=== PATIENT | male | born 1945 | race Caucasian/White ===

== ENCOUNTER → 2017-08-22 | Outpatient (CLI) | payer OTHER ==
[~2017-08-22] MED LIST: ACETAMINOPHEN325 M1 PO; CYCLOBENZAPRINE10 MG PO; DESYREL150 MG PO; DILTIAZEM 24HR120 M1 PO; DILTIAZEM 24HR240 MG PO; DILTIAZEM ER120 M1 PO; FLEXERIL PO; FLOMAX0.4 MG PO; GLUCOPHAGE500 MG PO; HYDROCODONE-AP1 EAC6 PO; LYRICA 50 MG50 MG PO; LYRICA 75 MG CA75 MG PO; MULTIVITAMINS PO; NAPROSYN500 MG PO; NORCO 5-325 TA1 EACH PO; PAMELOR25 MG PO; PERCOCET 10-321 EACH PO; PERCOCET 7.5-31 EACH PO; PREDNISONE 10 M10 MG PO; PRINIVIL20 MG PO; PRINZIDE 20-121 EACH PO; RELAFEN500 MG PO; TRAZODONE PO; VALIUM5 MG PO; XANAX 0.25 MG0.25 MG PO; ZINC CHELATE50 MG PO
== END ==
LOC: RAD 12:30
DX: J44.9 Chronic obstructive pulmonary disease, unspecified (principal)

== ENCOUNTER 2018-02-18 13:30 | Emergency (ER) | payer OTHER ==
[~2018-02-18] VITALS: Ht 177.8 cm; Wt 80.7 kg
[2018-02-18] MEDS ORDERED: BUSPIRONE HCL10 MG PO (13:45)
[2018-02-18] MEDS ORDERED: KEFLEX500 M1 PO (15:25)
[2018-02-18 15:36] VITALS: BP 168/79
== END 2018-02-18 15:50 | disposition home or self-care (01) ==
LOC: ER 13:30
DX: S81.812A Laceration without foreign body, left lower leg, initial encounter (principal); S80.812A Abrasion, left lower leg, initial encounter; S80.811A Abrasion, right lower leg, initial encounter; I10 Essential (primary) hypertension; E11.9 Type 2 diabetes mellitus without complications; F17.200 Nicotine dependence, unspecified, uncomplicated; Z88.8 Allergy status to other drugs, medicaments and biological substances; W17.1XXA Fall into storm drain or manhole, initial encounter; Y93.89 Activity, other specified; Y92.89 Other specified places as the place of occurrence of the external cause; Y99.8 Other external cause status

== ENCOUNTER → 2018-10-10 | Outpatient (CLI) | payer OTHER ==
[~2018-10-10] VITALS: Ht 177.8 cm; Wt 78.9 kg
[~2018-10-10] MED LIST changes: +ASPIRIN325 PO; +AVODART0.5 MG PO; +BUSPIRONE HCL10 MG PO; +CIALIS20 MG PO; +CYMBALTA30 MG PO; +GLUCOTROL5 MG PO; +KEFLEX500 M1 PO; +LASIX 20 MG TAB20 MG PO; +LIPITOR40 MG PO; +PLAVIX 75 MG TA75 M1 PO; +TRAZODONE 150150 M1 PO; +WELLBUTRIN SR150 MG PO
[2018-10-10 12:28] VITALS: BP 148/67
[2018-10-10 13:08] LABS: HEMATOCRIT 42.3 % (42.0-52.0); HEMOGLOBIN 14.2 gm/dL (14.0-18.0); MCHC 33.7 g/dL (28.0-37.0); RBC 4.6 mil/uL (4.50-6.00); RDW 13.6 % (10.5-14.5); WBC 9.2 thou/uL (4.0-11.0)
[2018-10-10 13:15] LABS: CALCIUM 9.9 mg/dL (8.5-10.1); CREATININE 1.3 mg/dL (0.7-1.3); POTASSIUM 4.1 mmol/L (3.5-5.1)
== END | disposition home or self-care (01) ==
LOC: RAD 10-09 11:21 → SPEC 11:53 → RAD 11:53
PROVIDERS: Nuclear Medicine Nuclear Cardiology
DX: I70.238 Atherosclerosis of native arteries of right leg with ulceration of other part of lower leg (principal); I70.1 Atherosclerosis of renal artery; I10 Essential (primary) hypertension; I25.10 Atherosclerotic heart disease of native coronary artery without angina pectoris; M25.571 Pain in right ankle and joints of right foot; E11.9 Type 2 diabetes mellitus without complications; F17.210 Nicotine dependence, cigarettes, uncomplicated; Z88.8 Allergy status to other drugs, medicaments and biological substances; Z98.890 Other specified postprocedural states; Z79.899 Other long term (current) drug therapy

== ENCOUNTER → 2018-10-14 | Outpatient (CLI) | payer OTHER ==
[~2018-10-14] VITALS: Ht 177.8 cm; Wt 78.9 kg
[2018-10-14 09:37] VITALS: BP 160/68
== END | disposition home or self-care (01) ==
LOC: SPEC 08:52
DX: I70.212 Atherosclerosis of native arteries of extremities with intermittent claudication, left leg (principal); I10 Essential (primary) hypertension; E11.9 Type 2 diabetes mellitus without complications; F17.210 Nicotine dependence, cigarettes, uncomplicated; Z98.890 Other specified postprocedural states; Z79.899 Other long term (current) drug therapy; Z88.8 Allergy status to other drugs, medicaments and biological substances

== ENCOUNTER → 2018-10-18 | Outpatient (CLI) | payer OTHER | LOC: CAT 15:06 | DX: Z13.6 Encounter for screening for cardiovascular disorders (principal); I25.10 Atherosclerotic heart disease of native coronary artery without angina pectoris; E78.00 Pure hypercholesterolemia, unspecified ==

== ENCOUNTER → 2019-03-06 | Outpatient (CLI) | payer OTHER ==
[~2019-03-06] MED LIST changes: +FLAGYL500 M1 PO; +LEVAQUIN 500 M500 M8 PO
== END ==
LOC: SJCVC 14:00
DX: I25.10 Atherosclerotic heart disease of native coronary artery without angina pectoris (principal); I12.9 Hypertensive chronic kidney disease with stage 1 through stage 4 chronic kidney disease, or unspecified chronic kidney disease; E11.22 Type 2 diabetes mellitus with diabetic chronic kidney disease; N18.3 Chronic kidney disease, stage 3 (moderate); I73.9 Peripheral vascular disease, unspecified; I65.23 Occlusion and stenosis of bilateral carotid arteries; E78.5 Hyperlipidemia, unspecified; F17.210 Nicotine dependence, cigarettes, uncomplicated; Z79.82 Long term (current) use of aspirin; Z88.8 Allergy status to other drugs, medicaments and biological substances

== ENCOUNTER → 2019-04-04 | Outpatient (CLI) | payer OTHER ==
[~2019-04-04] MED LIST changes: -FLAGYL500 M1 PO; -LEVAQUIN 500 M500 M8 PO
== END ==
LOC: MRI 07:02
DX: M48.062 Spinal stenosis, lumbar region with neurogenic claudication (principal); M51.36 Other intervertebral disc degeneration, lumbar region

== ENCOUNTER 2019-04-09 19:48 | Inpatient (IN) | payer OTHER ==
[~2019-04-09] VITALS: Ht 175.3 cm; Wt 75.7 kg
[2019-04-09 19:51] VITALS: BP 139/75
[2019-04-09 20:45] LABS: URINE BILIRUBIN NEGATIVE (Negative); URINE BLOOD NEGATIVE (Negative); URINE CLARITY CLEAR; URINE COLOR YELLOW; URINE GLUCOSE-RANDOM* 1+ (Negative); URINE KETONES NEGATIVE (Negative); URINE NITRITE-REFLEX NEGATIVE (Negative); URINE PROTEIN (DIPSTICK) NEGATIVE (Negative); URINE UROBILINOGEN 0.2 E.U./dl (0.2-1.0)
[2019-04-09 20:52] LABS: URINE LEUKOCYTES-REFLEX 1+ (Negative)
[2019-04-09 21:00] LABS: CASTS None Seen /LPF (None Seen); CRYSTALS None Seen /LPF (None Seen); SQUAMOUS None Seen /LPF (0-3); URINE WBC-REFLEX 6-15 Few /HPF (0-5)
[2019-04-09 21:01] LABS: BACTERIA-REFLEX 1-9 Few /HPF (None Seen); URINE RBC None Seen /HPF (0-2)
[2019-04-09 21:08] LABS: ABSOLUTE NEUTROPHILS 9.2 thou/uL (1.4-8.2); BASOPHILS 0.7 % (0.0-2.0); EOSINOPHILS 0.2 % (0.0-3.0); HEMATOCRIT 46.1 % (42.0-52.0); LYMPHOCYTES 11.6 % (24.0-44.0); MCH 30.9 pg (26.0-34.0); MCHC 32.6 g/dL (28.0-37.0); MCV 94.8 fL (80.0-100.0); MONOCYTES 8.9 % (1.0-8.0); PLATELET COUNT 187 thou/uL (150-400); POLYS 78.6 % (36.0-66.0); RBC 4.86 mil/uL (4.50-6.00); RDW 14.9 % (10.5-14.5); WBC 11.7 thou/uL (4.0-11.0)
[2019-04-09 21:22] LABS: CALCIUM 9.7 mg/dL (8.5-10.1); CREATININE 1.6 mg/dL (0.7-1.3)
[2019-04-09 21:26] LABS: ALBUMIN 4.1 g/dL (3.4-5.0); TOTAL BILIRUBIN 0.3 mg/dL (<0.1-1.0); TOTAL PROTEIN 7.9 g/dL (6.4-8.2)
[2019-04-09 21:50] LABS: POTASSIUM 3.5 mmol/L (3.5-5.1)
[2019-04-10 00:16] VITALS: BP 202/95
--- NOTE | 2019-04-10 01:02 | NUR ---
NG TUBE TO RIGHT NARE PLACED. PATIENT TOLERATED WELL. 1200ML OF CLEAR GASTRIC FLUID IMMEDIATE RETURN
[2019-04-10 01:41] VITALS: BP 186/92
--- NOTE | 2019-04-10 04:31 | NUR ---
Pt admitted from ED at 0125 via cart accompanied by staff and dtr. A/OX4, oriented to the room and call light system. Pt c/o cramping pain on arrival and nausea but settled down after some time. NG tube patent connected to LIS draining moderate brown drainage. Medicated for pain with partial relief reported. Pt's BP elevated on arrival medicated per EMAR with partial relief 170/80,86. Pt reported to nurse he fell at home about a week ago d/t numbness in his LE,educated on fall safety protocol and verbalized understanding,fall precautions implemented. Resting quietly at this time w/o distress will continue to monitor pt.
[2019-04-10 04:41] VITALS: BP 170/80
[2019-04-10 06:08] LABS: HEMATOCRIT 43.7 % (42.0-52.0); HEMOGLOBIN 14.1 gm/dL (14.0-18.0); MCH 30.7 pg (26.0-34.0); MCHC 32.3 g/dL (28.0-37.0); MCV 95.1 fL (80.0-100.0); RBC 4.59 mil/uL (4.50-6.00); RDW 14.7 % (10.5-14.5); WBC 13.4 thou/uL (4.0-11.0)
[2019-04-10 06:34] LABS: CALCIUM 9.3 mg/dL (8.5-10.1); CREATININE 1.3 mg/dL (0.7-1.3); POTASSIUM 3.8 mmol/L (3.5-5.1)
[2019-04-10 07:26] VITALS: BP 171/76
[2019-04-10 08:29] LABS: BE(vivo) 3.9 mmol/L (-2 to +3); HCO3 27.5 mmol/L (22.0-26.0); PCO2 38.2 mmHg (35.0-45.0); PO2 69.3 mmHg (80.0-100.0); pH 7.475 (7.360-7.450)
--- NOTE | 2019-04-10 09:18 | NUR ---
Pt admit with acute diverticulitis. Hx HTN, NIDD. Experienced N/V in ED but reports none prior to admit. NG tube placed for decompression of abdominal distention. Day 1 on NPO. UBW is 175#, currently 95.4% of UBW. Wt loss of 4.6% occurred over the past 6 months. Pt states he has a good appetite but doesn't eat much when he visits his girlfriend in [place] almost every weekend because she doesn't cook. They typically eat at restaurants or fast food. States his diet used to be high in fiber with fruits and vegetables, however diet quality has been poor for past 4-5 months. Seemed overwhelmed with Dx but was very interested in diet education. States he had no formal diet education when he was Dx with DM about 20 yrs ago but thought he was able to control BG through diet at home. BG on admit was 222. IV Abx, IVF, lispro, ciproflaxin. No wasting noted. Consider to be low nutritional risk.
--- NOTE | 2019-04-10 19:22 | NUR ---
ASSUMED PT CARE AT 0700. PT AOX4, VSS, REPORTS PAIN IS GENERALIZED IN THE ABDOMINAL AREA. PT RECEIVED MORPHINE IV. PT HAS NAUSEA ON/OFF, GAVE IV ZOFRAN. PT HAS INCREASED ANXIETY NOW THAT HE TALKED TO THE DOCTOR. PT REPORTS HE MOM FROM A BOWEL OBSTRUCTION AT 70. PT REPORTS HE DOESN'T WANT TO IN THE SAME WAY AT AGE 73. PT HAS NG TUBE OUTPUT 1200. IV IN R AC WITH FLUIDS RUNNING/ANTIBIOTIC ORDERED. PT IS UP TO BR WITH SB ASSIST. PT HAD 1 SMALL BM TODAY. CALL LIGHT IN REACH, WILL CONTINUE TO MONITOR.
[2019-04-10 22:26] VITALS: BP 181/70
--- NOTE | 2019-04-10 22:36 | NUR ---
Timothy pt care at 1900. Pt A/OX4,C/o unrelieved pain/discomfort and feeling miserable. Had a 1:1 conversation with pt regarding s visits and findings and pt did verbalize feeling anxious about everything. Laney FLAGMAN notified on pt status;gave orders for Morphine 2MGX1 and Ativan 1MGX1. Medications administered and on reassessment pt stated he's finally pain free and can get some rest. No c/o N/V. BP elevated medicated with Hydralazine per EMAR,will monitor effectiveness. IVF infusing via RAC w/o problems. NG tube in place and patent draining brownish drainage.(Right nare). Fall precautions in place and pt verbalizes understanding to call for help before getting OOB.
[2019-04-11 08:00] VITALS: BP 151/89
[2019-04-11 08:39] LABS: HEMATOCRIT 43.3 % (42.0-52.0); HEMOGLOBIN 14.1 gm/dL (14.0-18.0); MCH 31.1 pg (26.0-34.0); MCHC 32.6 g/dL (28.0-37.0); MCV 95.4 fL (80.0-100.0); RBC 4.54 mil/uL (4.50-6.00); RDW 14.5 % (10.5-14.5); WBC 8.1 thou/uL (4.0-11.0)
[2019-04-11 08:49] LABS: CALCIUM 8.9 mg/dL (8.5-10.1); CREATININE 1.3 mg/dL (0.7-1.3); MAGNESIUM 2.2 mg/dL (1.8-2.4); POTASSIUM 3.2 mmol/L (3.5-5.1)
--- NOTE | 2019-04-11 09:56 | NUR ---
INITIAL ASSESSMENT: SW reviewed chart and spoke with nursing and attending physician. Pt was admitted from home due to diverticulitis/ileus. Pt has NG tube in place. Surgery is following. SW attempted to meet with pt at bedside. Pt is sleeping soundly during time of visit. Per chart, pt is alert/orientated x 4. Pt lives at home. Prior to admission, pt was independent with ADLs. SW to follow up with pt at later time and is following to assist as needed with discharge planning.
--- NOTE | 2019-04-11 17:49 | NUR ---
ASSUMED CARE OF PATIENT AT 0715, PATIENT ALERT AND ORIENTED X 4. UP WITH SBA. FALL PRECAUTIONS IN PLACE, DUE TO RECENT FALL. PATIENT DENIES PAIN THIS SHIFT. PATIENT HAS NG TUBE TO SUCTION, WITH DARK BROWNWISH DRAINAGE NOTED. NG TUBE CLAMPED AT 0820, RECHECKED RESIDUAL IN 4 HOURS, 100CC NOTED. OK TO START CLEAR LIQ. DIET PER DR JACKSON. C/O SORE THROAT, NOTIFIED DR STEINBERG OF SORE THROAT, CHLORASEPTIC SPRAY ORDERED. C/O NG BEING DISCONTINUED, THIS RN NOTIFIED DR JACKSON, JENNY TO REMOVE NG TUBE. NO C/O NAUSEA WITH CLEAR LIQUIDS. RIGHT AC IV WITH NS AT 75CC/HR. PER HR. PATIENT C/O ANXIETY, THIS RN NOTIFIED DR STEINBERG. WILL CONTINUE TO MONITOR.
[2019-04-11 19:45] VITALS: BP 179/81
[2019-04-11 22:33] VITALS: BP 123/51
--- NOTE | 2019-04-12 03:54 | NUR ---
PATIENT ALERT AND ORIENTED X4. COOPERATIVE AND PLEASANT. UP WITH SBA TO BATHROOM. MEDICATED FOR PAIN X1 AT TIME OF NOTE. BP 179/81 AND PRN HYDRALAZINE WAS GIVEN - DOWN TO 123/51. BS MONITORED PER ORDER. IVF INFUSING W/O COMPLICAITON. SLEPT WELL DURING ROUNDS, HOWEVER, PATIENT FELT THAT HE HAS NOT SLEPT WELL. WILL MONITOR.
[2019-04-12 06:45] LABS: HEMATOCRIT 38.9 % (42.0-52.0); HEMOGLOBIN 12.7 gm/dL (14.0-18.0); MCH 30.9 pg (26.0-34.0); MCHC 32.5 g/dL (28.0-37.0); MCV 95.2 fL (80.0-100.0); RBC 4.09 mil/uL (4.50-6.00); RDW 14.7 % (10.5-14.5); WBC 6.8 thou/uL (4.0-11.0)
[2019-04-12 06:59] LABS: CALCIUM 8.3 mg/dL (8.5-10.1); CREATININE 1.2 mg/dL (0.7-1.3); MAGNESIUM 1.9 mg/dL (1.8-2.4); POTASSIUM 3.5 mmol/L (3.5-5.1)
[2019-04-12 07:50] VITALS: BP 172/71
[2019-04-12] MEDS ORDERED: LEVAQUIN 500 M500 M8 PO (12:49)
[2019-04-12] MEDS ORDERED: FLAGYL500 M1 PO (12:49)
[2019-04-12 13:20] VITALS: BP 172/71
--- NOTE | 2019-04-12 13:35 | NUR ---
ASSUMED CARE OF PATIENT AT 0715, PATIENT ALERT AND ORIENTED X 4. UP WITH SBA TO BATHROOM. PATIENT C/O PAIN WITH BACK AREA, RECEIVD MORPHINE 4MG IV X 1 THIS SHIFT. PATIENT CONTINUES WITH RIGHT AC IV, WITH NS AT 75CC/HR. DR FAIR HERE THIS AM, UPGRADED DIET TO REGULAR FOR BREAKFAST AND LUNCH, TOLERATED WELL, NO NAUSEA OR PAIN REPORTED. DR STEINBERG HERE THIS AM TO SEE THE PATIENT, WILL DISCHARGE AFTER LUNCH, IF NO PROBLEMS. RECEIVED ORDER TO DISCHARGE TO HOME WITH SELF CARE. RIGHT AC IV REMOVED PRIOR TO DISCHARGE. ALL DISCHARGE PAPERWORK AND ALL PERSONAL BELONGINGS SENT WITH THE PATIENT. NEW SCRIPTS SENT TO THE PHARMACY, INFO FOR DISCHARGE MEDS SENT WITH THE PATIENT.
== END 2019-04-12 13:55 | disposition home or self-care (01) | DRG 389 ==
LOC: ER 19:48 → EROBS 23:28 → 4N 23:28 → EROBS 23:28 → 4N 04-10 00:37
PROVIDERS: Internal Medicine; Internal Medicine Gastroenterology; Nurse Practitioner Family; Physician Assistant; ADMIT Internal Medicine
PROC: 0D9670Z Drainage of Stomach with Drainage Device, Via Natural or Artificial Opening (ICD-10-PCS; principal; 2019-04-10)
DX: K56.699 Other intestinal obstruction unspecified as to partial versus complete obstruction (principal); K57.92 Diverticulitis of intestine, part unspecified, without perforation or abscess without bleeding; N39.0 Urinary tract infection, site not specified; N17.9 Acute kidney failure, unspecified; K56.1 Intussusception; I10 Essential (primary) hypertension; G89.29 Other chronic pain; N40.0 Benign prostatic hyperplasia without lower urinary tract symptoms; F41.9 Anxiety disorder, unspecified; M54.9 Dorsalgia, unspecified; E11.51 Type 2 diabetes mellitus with diabetic peripheral angiopathy without gangrene; F32.9 Major depressive disorder, single episode, unspecified; K52.9 Noninfective gastroenteritis and colitis, unspecified; Z88.8 Allergy status to other drugs, medicaments and biological substances; Z79.899 Other long term (current) drug therapy; Z79.82 Long term (current) use of aspirin; Z87.891 Personal history of nicotine dependence
CPT/HCPCS: 10091

== ENCOUNTER → 2019-04-30 | Outpatient (CLI) | payer OTHER ==
[~2019-04-30] VITALS: Ht 175.3 cm; Wt 76.9 kg
[~2019-04-30] MED LIST changes: +FLAGYL500 M1 PO; +LEVAQUIN 500 M500 M8 PO
[2019-04-30 13:47] VITALS: BP 136/78
--- NOTE | 2019-04-30 14:11 | NUR ---
Pain Clinic Assessment: 1. History of Osteoarthritis: BACK History of Rheumatoid Arthritis: 2. Height: 5 ft. 9 in. 175.3 cm. Weight: 169.6 lb. oz. 76.930 kg. Patient's BMI: 25.0 3. Vital Signs: BP: 136/78 Pulse: 80 Resp: 20 Temp: 02 Sat: 96 ECG Mon: 4. Pain Intensity: 7-9 5. Fall Risk: Dizziness: N Needs help standing or walking: N Fallen in the last 3 months: Y Fall risk comments: 6. Patient on Blood Thinner: Y 7. History of Hypertension: Y 8. Opioid Therapy greater than 6 weeks: Y Opiate Contract Signed: 9. Risk Assessment Tool Provided: 4-MODERATE RISK 10. Functional Assessment Tool: 11. Recreational Drug Use: Never Drug Type: Tobacco Use: Never Smoker Tobacco Type: Amount or Packs/day: How Many Years: Alcohol Use: No Frequency: Quant:
--- NOTE | 2019-05-06 07:45 | HPC ---
[facility] [place] [address] PAIN MANAGEMENT CONSULTATION Name: ANMOL ANGELO [facility] [id number] Admission: 04/30/19 Attend Phys: Richi Mtz DO Discharge: Date of : 45 Report #: [id number] THIS REPORT FOR: cc: Juan Cohcran Steven F. DO Johnson, James E. DO ~ DATE OF SERVICE: 04/30/2019 CHIEF COMPLAINT: Low back pain, bilateral lower extremity pain with paresthesias. HISTORY OF PRESENT ILLNESS: As you know, the patient is a 73-year-old male who has been referred to our clinic by his neurosurgeon, Dr. Feliz Chahal to trial a series of lumbar epidural injections under fluoroscopic guidance. The patient was recently seen by Dr. Ricci and advised that no current surgical option is necessary despite the fact that the patient is describing longstanding back pain with changes at the L4-L5 level indicating severe bilateral neural foraminal stenosis with flattening of both exiting L4 nerve roots. The patient reports pain begins in the low back radiates to the knees, which is the typical distribution of the L4 nerve dermatomal pattern. The patient indicates pain is exacerbated with activity such as standing, walking, lifting and bending. He describes the pain as shooting, cramping, aching, sharp, stabbing, numbness and tingling. The patient's current pain score 7/10, daily average at 7-9/10, worst pain has been is 9/10. The patient states that pain seems to improve with sitting down. He has been advised to trial more conservative treatment options initially as it was not felt the patient is necessarily a good surgical candidate. The patient does report he has been experiencing weakness in the right lower extremity and recent falls due to "loss of sensation in his leg." He has been advised to trial more conservative treatment options initially. He has been referred to our clinic to discuss options for treatment for lumbar radiculopathy. ALLERGIES: DOLOBID. CURRENT MEDICATIONS: Atorvastatin 40 mg per day, trazodone 150 mg p.o. at bedtime, bupropion SR 150 mg once a day, Plavix 75 mg per day, aspirin 325 mg per day, Cialis 20 mg p.r.n., glipizide 5 mg twice a day, duloxetine 30 mg once a day, Percocet 10/325 one tab every 6 hours p.r.n. for pain, diltiazem ER 120 mg once a day, tamsulosin 0.4 mg once a day, lisinopril 20 mg per day, alprazolam 0.25 mg p.o. at bedtime. SOCIAL HISTORY: The patient continues to smoke just less than a pack of tobacco per day. He has done so for multiple years. Denies IV or illicit drug use. Admits to 5 alcohol beverages per week. 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 He is not receiving workmen's compensation nor is he trying to obtain discrete benefits. He is not in litigation in regards to pain. REVIEW OF SYSTEMS: Positive for fatigue and weakness, wearing corrective eyewear, chronic sinus problems with rhinitis, shortness of breath walking or lying flat, frequent and recurrent coughs, asthma, wheezing, changes in bowel movements with intermittent constipation, rectal pain, abdominal pain, frequent urination, painful urination, nocturia, change in force or strain with urination, testicular pain and lumps. Lightheadedness and dizziness, numbness and tingling sensations, fatigue and weakness in the right lower extremity, memory loss with confusion, nervousness, depression, insomnia, diabetes mellitus type 2, noninsulin dependent, slow to heal after cuts, bleeding and bruising tendencies. All other review of systems negative per 12-point review of systems other than those listed in history of present illness. Pain impact score 38/70 indicating moderate interference of daily activities secondary to pain. PQRS: The patient has known arthritic changes of the lumbar spine, bilateral hips and mildly in the knees. No rheumatoid arthritis. He is placing pain intensity anywhere from 8-9/10. He is at fall risk and has had falls in the last 3 months due to weakness in the right lower extremity. He is on blood thinners, but has held the medication for the past 5 days. He is treated for hypertension. He is on chronic opioids and has a moderate to high opioid addiction potential. Pain impact score 38/70, moderate interference of daily activities secondary to pain. IMAGING: MRI of the lumbar spine obtained on 04/04/2019 shows T12-L1 unremarkable, L1-L2 unremarkable, L3-L4 shows advanced degenerative disk disease with disk space narrowing, Modic type changes, posterior disk osteophyte complex effacing the ventral thecal sac. Bilateral facet hypertrophy and ligamentum flavum hypertrophy with trace amount of fluid in the joints. Bilateral neural foraminal stenosis, left greater than right. L3-L4, advanced degenerative changes, disk space narrowing, Modic type changes. There is a left hemilaminectomy in this area. There is foraminal stenosis, but this is moderate. L4-L5 shows severe disk space narrowing, disk space desiccation, posterior disk osteophyte complex. There is a prior laminectomy. There is bilateral facet hypertrophy and severe bilateral neural foraminal stenosis with flattening of both exiting L4 nerve roots. Central canal is normal. L5-S1 surgical changes with remote interbody fusion and a left sided pedicle screw with jose fixation. Decompressing laminectomy. S1, S2 is rudimentary disk level is unremarkable. PHYSICAL EXAMINATION: VITAL SIGNS: Blood pressure 136/78, pulse 80, respiratory rate 20 and unlabored. The patient is 96% on room air. Height 5 feet 9 inches tall, weight 169.6 pounds and BMI calculated at 25.0. [address] [address] PAIN MANAGEMENT CONSULTATION Name: ANMOL ANGELO Room #: REG [facility].#: [id number] Admission: 04/30/19 Attend Phys: Richi Mtz DO Discharge: Date of : 45 Report #: [id number] GENERAL: Well-developed, well-nourished, well-hydrated 73-year-old male, appears older than stated age, smells strongly of tobacco smoke, placing current pain score at 7-9/10. HEENT: Normocephalic, atraumatic. Pupils equal, round, reactive to light. Extraocular muscles are intact. Speech fluent. The patient deemed a fair historian. LUNGS: Decreased breath sounds bilaterally, prolonged expiratory phase. There is wheezing noted both in inspiration and expiration. CARDIOVASCULAR: Regular. No appreciable gallop, no rub. ABDOMEN: Soft, nontender. EXTREMITIES: Show no clubbing, no cyanosis, no edema. MUSCULOSKELETAL: Lower extremity strength appears equal and symmetrical 5/5. He is intact to light touch from L1 through S2 dermatomes on the left from L1 through L3 dermatomes on the right with decreased tactile sensation to light touch in the L4 dermatome on the right. L5 and S1 appeared normal. Gait is mildly antalgic favoring right lower extremity over left. Reflexes appear present and symmetrical in bilateral lower extremities. The patient cannot toe walk or heel walk on the right when compared to left. ASSESSMENT: 1. Symptomatic lumbar radiculopathy. 2. 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 3. Displacement of lumbar intervertebral disk with radiculopathy. 4. Lumbosacral spondylosis with radiculopathy. 5. Lumbar degeneration. 6. Chronic intractable pain. PLAN: 1. The patient has been referred to our service to discuss treatment options for lumbar radiculopathy. It does appear symptoms are related to the severe neural foraminal stenosis at the L4-L5 level given the distribution of symptoms, specifically on the right leg with pain radiating from the low back to the buttock and along the leg to the knee. The patient is experiencing weakness and recent falls due to "losing control of his leg." He is experiencing numbness, tingling, burning, electrical like sensations, radiating into the leg as well consistent with lumbar radiculopathy. We discussed with the patient the findings in his MRI and then discuss the treatment options we have available. The following was discussed with the patient today. We discussed physical therapy, stretching exercises and core strengthening as a way to maintain use of his lower extremities and maintain potential improvement in back symptoms. We discussed medications that can be initiated by the primary care team in regards to treatment such as amitriptyline, nortriptyline, Lyrica, Cymbalta or gabapentin to control pain symptoms. This certainly will not change the weakness, the patient is experiencing in the recent falls. We discussed lumbar epidural injection for which the patient was referred to our clinic. We also discussed spinal cord stimulator as an option for treatment, which will again [address] [address] PAIN MANAGEMENT CONSULTATION Name: ANMOL ANGELO Room #: REG TAVO Mcintyre.#: [id number] Admission: 04/30/19 Attend Phys: Richi Mtz DO Discharge: Date of : 45 Report #: [id number] improve overall pain, but will not resolve his weakness. We also then discussed surgical options with the patient, which would require decompressing the L4-L5 level and the neural foramina. After reviewing the risks and benefits of all proposed treatment options, the patient chose to move forward with a lumbar epidural injection. 2. The patient will need to be off his Plavix for a total of 7 days. This is based on BREE guidelines requiring 7 days off Plavix prior to any type of neural axial blockade. The patient has been off his medication for 5 days, but has not completed the 7-day requirement. He has requested that he be seen on Sunday of this week, 05/02/2019 to undergo a lumbar epidural injection. I advised the patient that my partner, Dr. Evaristo Graham has agreed to have the patient seen in his clinic to undergo the procedure as I am at our clinic at [facility] and will be unavailable to provide this injection to the patient at that time. The patient is agreeable with the change in physician to Dr. Graham for this injection. 3. No medication changes made at today's visit. The patient will remain off the Plavix for the next 2 days until after his shot on Sunday prior to restarting his medication. He does have a release from his painter set to come off the medication for the total of 7 days. He will likely restart that Plavix the evening of the . 4. We discussed with the patient today smoking cessation. We discussed how smoking is directly affecting his chronic back pain issues and exacerbating any pain. We discussed with the patient ways to discontinue the use of cigarettes and offered to the patient assistance on getting off of cigarettes by either the use of cognitive behavioral therapy or medication therapy or possibly even discussing his case with professionals who worked with individuals to discontinue this addictive substance. The patient at this point is not considering discontinuation of smoking. 5. We will see the patient back in followup visit for an epidural injection with Dr. Moi Graham on 05/02/2019. 6. We wish to thank Dr. Chahal for the referral of this patient to our clinic. We will keep you apprised of his response to treatment as we address his lumbar radicular symptoms. Again, we wish to thank you for the opportunity to see this patient in consultation. <ELECTRONICALLY SIGNED> By: Richi Mtz DO 05/06/19 0745 [id number] Richi Mtz DO /nt
== END ==
LOC: PAIN 07:08
DX: M51.16 Intervertebral disc disorders with radiculopathy, lumbar region (principal); M47.26 Other spondylosis with radiculopathy, lumbar region; M48.061 Spinal stenosis, lumbar region without neurogenic claudication; M79.604 Pain in right leg; M79.605 Pain in left leg; G89.29 Other chronic pain; F17.200 Nicotine dependence, unspecified, uncomplicated; Z88.8 Allergy status to other drugs, medicaments and biological substances; Z79.899 Other long term (current) drug therapy

== ENCOUNTER → 2019-05-02 | Outpatient (CLI) | payer OTHER ==
[~2019-05-02] VITALS: Ht 175.3 cm; Wt 76.6 kg
[2019-05-02 12:39] VITALS: BP 137/75
--- NOTE | 2019-05-02 12:45 | NUR ---
Pain Clinic Assessment: 1. History of Osteoarthritis: BACK History of Rheumatoid Arthritis: 2. Height: 5 ft. 9 in. 175.3 cm. Weight: 168.9 lb. oz. 76.613 kg. Patient's BMI: 24.9 3. Vital Signs: BP: 137/75 Pulse: 89 Resp: 16 Temp: 02 Sat: 97 ECG Mon: 4. Pain Intensity: 7-9 5. Fall Risk: Dizziness: Y Needs help standing or walking: N Fallen in the last 3 months: N Fall risk comments: 6. Patient on Blood Thinner: None 7. History of Hypertension: Y 8. Opioid Therapy greater than 6 weeks: Y Opiate Contract Signed: 9. Risk Assessment Tool Provided: 4-MODERATE RISK 10. Functional Assessment Tool: 11. Recreational Drug Use: Never Drug Type: Tobacco Use: Never Smoker Tobacco Type: Amount or Packs/day: How Many Years: Alcohol Use: No Frequency: Quant:
--- NOTE | 2019-05-08 13:51 | HPC ---
[facility] [place] [address] PAIN MANAGEMENT CONSULTATION Name: ANMOL ANGELO [facility] [id number] Admission: 05/02/19 Attend Phys: Jennifer Graham MD Discharge: Date of : 45 Report #: [id number] THIS REPORT FOR: cc: Juan Cochran,Jennifer Yap MD ~ CC: Jennifer Cochran DATE OF SERVICE: 05/02/2019 CHIEF COMPLAINT: Pain in the right low back area down into the leg. HISTORY: The patient is a 73-year-old gentleman who has been followed by Dr. Richi Mtz in the pain clinic. The patient has continued to experience pain in the low back area. It radiates down into the L4-L5 area. He does have some stenosis in this area. He has returned today for an epidural injection using the transforaminal approach. ALLERGIES: DOLOBID. CURRENT MEDICATIONS: Lipitor 40 mg, trazodone 150 mg, bupropion SR 150 mg, Plavix 75 mg daily, aspirin 325 mg, Cialis 20 mg, glipizide 5 mg b.i.d., duloxetine 30 mg, Percocet 10/325 mg q. 6 hours p.r.n., diltiazem ER 120 mg daily, Flomax 0.4 mg daily, lisinopril 20 mg, alprazolam 0.25 mg at bedtime. PAIN CLINIC ASSESSMENT/PQRS: 1. History of osteoarthritis involving the back. The patient has had back surgery. The patient is not being treated for rheumatoid arthritis. 2. Height 5 feet 9 inches, weight 168 pounds, BMI is 24.9. 3. Vital signs: Blood pressure 137/75, pulse 89, respiratory rate 16, room air saturation 97%. 4. Pain intensity 7-9/10. 5. Fall risk: The patient has not fallen in the last 3 months. 6. Blood thinner: The patient is using Plavix. 7. History of hypertension: The patient is being treated for hypertension. 8. Opioids greater than 6 weeks: The patient receives medication from [facility]. 9. Risk assessment tool: Moderate for opioid use. 10. Functional assessment tool: . 11. Recreational drugs: The patient denies. 12. Tobacco: The patient has never smoked. 13. Alcohol: The patient denies use of alcoholic beverages. PHYSICAL EXAMINATION: GENERAL: The patient is a well-developed, well-nourished 73-year[place] [address] PAIN MANAGEMENT CONSULTATION Name: ANMOL ANGELO Room #: REG [facility]#: [id number] Admission: 05/02/19 Attend Phys: Jennifer Graham MD Discharge: Date of : 45 Report #: [id number] He appears his stated age. He is alert and oriented x 3. His affect is appropriate. Speech is fluent. HEENT: Normocephalic, atraumatic. Extraocular eye muscles intact. LUNGS: Generally clear. Slight wheezing. HEART: Regular rate. ABDOMEN: Nontender. MUSCULOSKELETAL: Upper extremity muscle strength judged to be 5-/5 for the major muscle groups in the upper extremity. Lower extremity, the patient has pain and discomfort in the L5 dermatomal distribution on the right. Has a perception of pain in the lower back area. Notes right leg sometimes feels as though it is going to give out. The patient has had his knees buckle on 2-3 occasions. Did not fall. IMPRESSION: 1. Symptomatic lumbar radiculopathy, L4-L5 on the right. 2. Severe neural foraminal stenosis of lumbar spine. 3. Displacement of lumbar intervertebral disk with radiculopathy. 4. Lumbosacral spondylosis with radiculopathy. 5. Lumbar degeneration. 6. Chronic intractable pain. RECOMMENDATIONS: We discussed treatment options with the patient. The patient's questions were discussed and answered. A model was used to indicate the area of probable pathology. The patient elects to proceed. Risks and benefits of the procedure were discussed. They include but are not limited to infection, worsening of pain, no improvement in pain, nerve damage, spinal headache and the patient elects to proceed. PROCEDURE NOTE: The patient was taken to the procedure area. He was then assisted in getting on the examination table. A pillow was placed under the abdomen to bolster and improve positioning. Fluoroscopy using anterior, posterior as well as lateral viewing were implemented. A 25-gauge needle was used to provide a skin wheal at the L4-L5 area. A 22-gauge spinal needle was then advanced into the appropriate place using fluoroscopy in anterior and posterior views. After appropriate placement, a total of 80 mg Depo-Medrol, 40 mg triamcinolone and 2 mL of 0.25% bupivacaine was injected. The patient tolerated the procedure well. There were no complications. There was no complaint of pain or discomfort at any time during the injection of the medication. We would like to thank you for letting us participate in his care. We hope he continues to improve. <ELECTRONICALLY SIGNED> By: Jennifer Graham MD 05/08/19 1351 [id number] Jennifer Graham MD /KATIA
== END | disposition home or self-care (01) ==
LOC: PAIN 06:52
DX: M51.16 Intervertebral disc disorders with radiculopathy, lumbar region (principal); M47.27 Other spondylosis with radiculopathy, lumbosacral region; M48.061 Spinal stenosis, lumbar region without neurogenic claudication; G89.29 Other chronic pain; I10 Essential (primary) hypertension; Z98.890 Other specified postprocedural states; Z79.899 Other long term (current) drug therapy; Z88.8 Allergy status to other drugs, medicaments and biological substances

== ENCOUNTER → 2019-09-03 | Outpatient (CLI) | payer OTHER ==
[~2019-09-03] VITALS: Ht 172.7 cm; Wt 78.5 kg
[~2019-09-03] MED LIST changes: +CELEXA 20 MG TA20 MG PO; -DILTIAZEM 24HR120 M1 PO; +DILTIAZEM ER360 M1 PO; +FUROSEMIDE 40 M40 MG PO; +GLIPIZIDE 10 MG10 MG PO; -GLUCOTROL5 MG PO; +IBUPROFEN200 M1 PO; +LORATIDINE 10 M10 M1 PO; +MAG-OXIDE200 MG PO; -XANAX 0.25 MG0.25 MG PO; +XANAX 0.5 MG0.5 M1 PO; +[UNRECOGNIZED DRUG - OTHER] PO
[2019-09-03 09:07] VITALS: BP 123/49
--- NOTE | 2019-09-03 09:17 | NUR ---
Pain Clinic Assessment: 1. History of Osteoarthritis: BACK History of Rheumatoid Arthritis: 2. Height: 5 ft. 8 in. 172.7 cm. Weight: 173.0 lb. oz. 78.472 kg. Patient's BMI: 26.3 3. Vital Signs: BP: 123/49 Pulse: 74 Resp: 16 Temp: 02 Sat: 95 ECG Mon: 4. Pain Intensity: 7 5. Fall Risk: Dizziness: N Needs help standing or walking: N Fallen in the last 3 months: N Fall risk comments: 6. Patient on Blood Thinner: Clopidogrel Bisulf(Plavix 7. History of Hypertension: Y 8. Opioid Therapy greater than 6 weeks: Y Opiate Contract Signed: 9. Risk Assessment Tool Provided: 4-MODERATE RISK 10. Functional Assessment Tool: 11. Recreational Drug Use: Never Drug Type: Tobacco Use: Never Smoker Tobacco Type: Amount or Packs/day: How Many Years: Alcohol Use: No Frequency: Quant:
--- NOTE | 2019-09-19 08:56 | HPC ---
[facility] [place] [address] PAIN MANAGEMENT CONSULTATION Name: ANMOL ANGELO Room #: REG [facility] [place].#: [id number] Admission: 09/03/19 Attend Phys: Jennifer Graham MD Discharge: Date of : 45 Report #: [id number] THIS REPORT FOR: cc: Juan Cochran,Jennifer Yap MD ~ CC: Jennifer Cochran DATE OF SERVICE: 09/03/2019 CHIEF COMPLAINT: Right hip and buttock pain with pain radiating down below the knee. HISTORY: The patient is a 73-year-old gentleman who has been seen in the pain clinic because of chronic low back pain. He has experienced pain in the L5-S1 area. He does have stenosis in the low back area. He has undergone epidural steroid injection. He returns today and rates his pain as 7/10. He has found that Percocet are helpful. Notes that when he is sitting, he is pain-free. When he gets up to do activities, he notes an increase in pain and discomfort. ALLERGIES: DOLOBID. CURRENT MEDICATIONS: Lipitor 40 mg, trazodone 150 mg, bupropion SR 150 mg, Plavix 75 mg daily, aspirin 325 mg, Cialis 20 mg, glipizide 5 mg b.i.d., duloxetine 30 mg, Percocet 10/325 1 p.o. q.4-6 hours p.r.n., diltiazem ER 120 mg daily, Flomax 0.4 mg, lisinopril 20 mg, alprazolam 0.25 mg at bedtime. PAIN CLINIC ASSESSMENT AND PQRS: 1. History of osteoarthritis involving the low back area. The patient has had back surgery. The patient is not being treated for rheumatoid arthritis. 2. Height 5 feet 8 inches, weight 173 pounds, BMI is 26.3. 3. Vital signs: Blood pressure 123/49, pulse 74, respiratory rate 16, room air saturation 95%. 4. Pain intensity, 09/04. 5. Fall history. The patient has not fallen in the last month. 6. Blood thinner. The patient is on a blood thinning medication, Plavix. 7. Hypertension. The patient is being treated for hypertension. 8. Opioids greater than 6 weeks. The patient receives medications from his physician. 9. Risk assessment tool, moderate for opioid use. 10. Functional assessment tool, 38/70. 11. Recreational drug use. The patient denies. 12. Tobacco. The patient has never smoked. 13. Alcohol. The patient denies frequent use of alcoholic beverages. [facility] [address] [place] [address] PAIN MANAGEMENT CONSULTATION Name: ANMOL ANGELO Room #: [facility] [id number] Admission: 09/03/19 Attend Phys: Jennifer Graham MD Discharge: Date of : 45 Report #: [id number] PHYSICAL EXAMINATION: GENERAL: The patient is a well-developed, well-nourished, 73-year-old gentleman. He appears his stated age. He is alert and oriented x 3. His affect is appropriate. Speech is fluent. HEENT: Normocephalic, atraumatic. Extraocular eye muscles intact. Sclerae nonicteric. Mucous membranes are moist. The patient is wearing a mask. HEART: Regular rate. LUNGS: Generally clear. Slight wheezing. ABDOMEN: Nontender. EXTREMITIES: Upper extremity muscle strength 5-/5 for the major muscle groups in the upper extremity. The patient has some pain and discomfort in the L5 dermatomal distribution, particularly when standing for some time. IMPRESSION: 1. Symptomatic lumbar radicular pain with spinal stenosis discomfort across the low back area in the L4-L5 distribution. 2. 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 3. Displacement of lumbar intervertebral disk with radiculopathy. 4. Lumbosacral spondylosis with radiculopathy. 5. Lumbar degeneration. 6. Chronic intractable pain with clinical findings consistent with spinal stenosis in the lumbar area. RECOMMENDATIONS: We discussed treatment options with the patient. Again, we discussed the risks and benefits of epidural steroid injections. At this juncture, we will try a conservative approach. We will have the patient try physical therapy. He will be provided 3 visits a week for 3 weeks and get an information and exercises, which can be beneficial. He will return to the pain clinic as needed. We would like to thank you for letting us participate in his care. We hope he continues to improve. <ELECTRONICALLY SIGNED> By: Jennifer Graham MD 09/19/19 [id number] Jennifer Graham MD /KATIA
== END ==
LOC: PAIN 06:45
PROVIDERS: ATTEND Anesthesiology Pain Medicine
DX: M47.27 Other spondylosis with radiculopathy, lumbosacral region (principal); M48.061 Spinal stenosis, lumbar region without neurogenic claudication; M51.16 Intervertebral disc disorders with radiculopathy, lumbar region; M51.06 Intervertebral disc disorders with myelopathy, lumbar region; Z88.8 Allergy status to other drugs, medicaments and biological substances; Z79.899 Other long term (current) drug therapy

== ENCOUNTER → 2019-09-15 | Outpatient (CLI) | payer OTHER | LOC: LAB 08:07 | PROVIDERS: ATTEND Student in an Organized Health Care Education/Training Program | DX: Z01.812 Encounter for preprocedural laboratory examination (principal); Z11.59 Encounter for screening for other viral diseases ==

== ENCOUNTER 2019-09-18 06:12 | Day surgery (SDC) | payer OTHER ==
[~2019-09-18] VITALS: Ht 175.3 cm; Wt 78.0 kg
[2019-09-18 08:15] VITALS: BP 184/76
--- NOTE | 2019-09-22 06:14 | O ---
[facility] [place] [address] OPERATIVE REPORT Name: ANMOL ANGELO Room #: DEP [facility].#: [id number] Admission: 09/18/19 Attend Phys: Michael Andrade MD Discharge: 09/18/19 Date of : 45 Report #: [id number] THIS REPORT FOR: cc: Juan Cochran,Michael Ortega MD ~ CC: Ashely Andrade DATE OF SERVICE: 09/18/2019 STIPPLER: None. PREOPERATIVE DIAGNOSIS: Bilateral lower lid entropion. POSTOPERATIVE DIAGNOSIS: Bilateral lower lid entropion. OPERATION PERFORMED: Bilateral lower lid entropion repair. ANESTHESIA: Local with IV sedation. COMPLICATIONS: None. INDICATIONS FOR PROCEDURE: This patient has bilateral lower lid entropion with chronic irritation and discharge. The current procedures are being undertaken in order to improve the patient's level of comfort and visual function. Informed consent was obtained to include but not limited to the loss of vision, bleeding, infection, scarring, failure to improve the problem and need for further surgery. DESCRIPTION OF OPERATION: The patient was taken to the operating room, where 2% Xylocaine with epinephrine mixed with equal parts of 0.75% Marcaine with Wydase was administered transcutaneously and transconjunctivally to each lower lid and lateral canthal area. The patient was then prepped and draped in the usual sterile fashion. A Josephine clamp was used to clamp the left lateral canthus, following which a sharp canthotomy and cantholysis were performed. Hemostasis was achieved with a monopolar cautery, as it was throughout the case. A tarsal strip was prepared laterally, removing the lash bearing portion of the redundant lid margin and the redundant tarsal plate. A transconjunctival dissection was then undertaken just inferior to the lower border of the tarsal plate. The lower lid retractors were disinserted from the inferior border of the tarsal plate. The lower lid retractors were then advanced and reattached to the anterior surface of the tarsal plate with mattress 5-0 chromic sutures passed [address] [address] OPERATIVE REPORT Name: ANMOL ANGELO Room #: DEP [facility]..#: [id number] Admission: 09/18/19 Attend Phys: Michael Andrade MD Discharge: 09/18/19 Date of : 45 Report #: [id number] transconjunctivally and secured in the infraciliary margin. The tarsal strip was then secured laterally with 2 interrupted 5-0 Prolene sutures. The subcutaneous structures and the skin were then closed with multiple interrupted 6-0 plain gut sutures so the lateral canthal angle was sharply reformed. The wounds were then cleaned and dressed with ophthalmic antibiotic ointment. The patient was then transported to the recovery area, having tolerated the procedure well with no anesthetic or operative complications being noted. <ELECTRONICALLY SIGNED> By: Michael Andrade MD 09/22/19 [id number] Michael Andrade MD /nt
== END 2019-09-18 08:30 | disposition home or self-care (01) ==
LOC: OR 06:12 → TBA 06:13 → OR 08:30
PROVIDERS: ATTEND Ophthalmology
DX: H02.005 Unspecified entropion of left lower eyelid (principal); H02.002 Unspecified entropion of right lower eyelid; I10 Essential (primary) hypertension; E11.9 Type 2 diabetes mellitus without complications; I25.10 Atherosclerotic heart disease of native coronary artery without angina pectoris; F32.9 Major depressive disorder, single episode, unspecified; F17.210 Nicotine dependence, cigarettes, uncomplicated; Z98.890 Other specified postprocedural states; Z79.899 Other long term (current) drug therapy; Z88.8 Allergy status to other drugs, medicaments and biological substances
CPT/HCPCS: 50010; 50101; 50386; 50398; 51636; 56527; 56531; 62110; 62850; 70005

== ENCOUNTER → 2019-09-25 | Outpatient (CLI) | payer OTHER | LOC: SJCVCIMAG 07:03 | PROVIDERS: ATTEND Nuclear Medicine Nuclear Cardiology | DX: I65.23 Occlusion and stenosis of bilateral carotid arteries (principal); I70.203 Unspecified atherosclerosis of native arteries of extremities, bilateral legs; I70.1 Atherosclerosis of renal artery; I12.9 Hypertensive chronic kidney disease with stage 1 through stage 4 chronic kidney disease, or unspecified chronic kidney disease; E11.22 Type 2 diabetes mellitus with diabetic chronic kidney disease; N18.3 Chronic kidney disease, stage 3 (moderate); R93.1 Abnormal findings on diagnostic imaging of heart and coronary circulation; I44.0 Atrioventricular block, first degree; R79.89 Other specified abnormal findings of blood chemistry; E78.00 Pure hypercholesterolemia, unspecified; F17.210 Nicotine dependence, cigarettes, uncomplicated; Z95.820 Peripheral vascular angioplasty status with implants and grafts; Z79.82 Long term (current) use of aspirin; Z79.899 Other long term (current) drug therapy ==

== ENCOUNTER → 2019-11-27 | Outpatient (CLI) | payer OTHER | LOC: SJCVCIMAG 14:08 | PROVIDERS: ATTEND Internal Medicine Cardiovascular Disease | DX: I25.10 Atherosclerotic heart disease of native coronary artery without angina pectoris (principal); I10 Essential (primary) hypertension; E78.00 Pure hypercholesterolemia, unspecified; I44.0 Atrioventricular block, first degree; I73.9 Peripheral vascular disease, unspecified; F17.200 Nicotine dependence, unspecified, uncomplicated; Z79.899 Other long term (current) drug therapy ==

== ENCOUNTER → 2020-01-29 | Outpatient (CLI) | payer OTHER | LOC: LAB 08:55 | PROVIDERS: ATTEND Neuromusculoskeletal Medicine & OMM | DX: Z20.828 Contact with and (suspected) exposure to other viral communicable diseases (principal) ==